=== PATIENT | female | born 1975 | race Caucasian/White ===

== ENCOUNTER 2017-12-12 12:19 | Emergency (ER) | payer OTHER ==
[~2017-12-12] VITALS: Ht 170.2 cm; Wt 93.4 kg
[2017-12-12] MEDS ORDERED: MECLIZINE HCL 12.5 MG TAB PO ONE (13:30)
--- NOTE | 2017-12-12 14:19 | Diagnostic Imaging Report ---
History:Rule out mass lesion. Headaches Comparison studies:None Technique: Axial images were obtained from the skull base to the vertex. Coronal and sagittal reconstructions obtained from the axial data. Findings: Scalp/skull: No abnormalities. No fractures, blastic or lytic lesions. Extra-axial spaces: No masses. No fluid collections. Brain sulci: Appropriate for age. Ventricles: Prominent right lateral ventricle, which may be constitutional. No hydrocephalus. Parenchyma: No abnormal densities. No masses, hemorrhage, acute or chronic cortical vascular insults. Sellar/suprasellar region: No abnormalities Craniocervical junction: Patent foramen magnum. No Chiari one malformation. IMPRESSION: No acute abnormalities . Signed by: DR Jason Mcgarry M.D. on 12/12/2017 2:15 PM
== END 2017-12-12 16:14 | disposition home or self-care (01) ==
LOC: ER 12:19
DX: R42 Dizziness and giddiness (principal); E03.9 Hypothyroidism, unspecified; G43.909 Migraine, unspecified, not intractable, without status migrainosus
CPT/HCPCS: 70450; 99283